=== PATIENT | male | born 1960 ===

== ENCOUNTER 2018-11-19 10:18 | Outpatient (REF) | payer MEDICAID, SELFPAY ==
[2018-11-19 22:32] LABS: Anion Gap 7.2 mmol/L (3-11); BUN 19 mg/dL (7-18); CO2 30.8 mmol/L (21.0-32.0); CREATININE 1.09 mg/dL (0.70-1.30); Calcium 9.4 mg/dL (8.5-10.1); Chloride 105 mmol/L (98-107); Glucose 134 mg/dL (70-100); Magnesium 1.8 mg/dL (1.8-2.4); Potassium 4.3 mmol/L (3.5-5.1); Sodium 143 mmol/L (136-145); TSH (W/Ref FT4) 1.11 uIU/mL (0.358-3.74)
[2018-11-21 05:53] LABS: Vitamin D 25 Total 16.7 ng/ml (30-100)
== END 2018-11-19 10:38 ==
LOC: NCHCN 10:18
PROVIDERS: PCP Family Medicine; Visit Provider Family Medicine
DX: I25.10 Atherosclerotic heart disease of native coronary artery without angina pectoris (principal); M72.0 Palmar fascial fibromatosis [Dupuytren]; I10 Essential (primary) hypertension; E66.3 Overweight; M79.10 Myalgia, unspecified site
CPT/HCPCS: 80048; 82306; 83036; 83735; 84443

== ENCOUNTER 2019-02-18 11:22 | Outpatient (REF) | payer MEDICAID, SELFPAY ==
[2019-02-18 21:05] LABS: Anion Gap 8.9 mmol/L (3-11); BUN 19 mg/dL (7-18); CO2 30.1 mmol/L (21.0-32.0); CREATININE 0.88 mg/dL (0.70-1.30); Calcium 9.1 mg/dL (8.5-10.1); Chloride 105 mmol/L (98-107); Glucose 71 mg/dL (70-100); Potassium 4.6 mmol/L (3.5-5.1); Sodium 144 mmol/L (136-145)
[2019-02-20 06:09] LABS: Vitamin D 25 Total 28.5 ng/ml (30-100)
== END 2019-02-18 11:42 ==
LOC: NCHCN 11:22
PROVIDERS: PCP Family Medicine; Visit Provider Family Medicine
DX: E55.9 Vitamin D deficiency, unspecified (principal); I10 Essential (primary) hypertension
CPT/HCPCS: 80048; 82306

== ENCOUNTER 2021-02-17 15:51 | Outpatient (REF) | payer MEDICAID, SELFPAY ==
[2021-02-17 13:10] LABS: Anion Gap 8.4 mmol/L (3-11); BUN 16 mg/dL (7-18); CO2 27.6 mmol/L (21.0-32.0); CREATININE 0.8 mg/dL (0.70-1.30); Calcium 9.4 mg/dL (8.5-10.1); Chloride 105 mmol/L (98-107); Glucose 119 mg/dL (74-106); Potassium 4.4 mmol/L (3.5-5.1); Sodium 141 mmol/L (136-145)
== END 2021-02-17 15:52 | disposition home or self-care (01) ==
LOC: NCHCN 15:51
PROVIDERS: PCP Family Medicine; Visit Provider Nurse Practitioner Family
DX: I10 Essential (primary) hypertension (principal)
CPT/HCPCS: 80048

== ENCOUNTER 2021-03-03 15:26 | Outpatient (REF) | payer MEDICAID, SELFPAY ==
[2021-03-03 19:23] LABS: Anion Gap 6.7 mmol/L (3-11); BUN 24 mg/dL (7-18); CO2 28.3 mmol/L (21.0-32.0); CREATININE 1.1 mg/dL (0.70-1.30); Chloride 106 mmol/L (98-107); Glucose 134 mg/dL (74-106); Potassium 4.2 mmol/L (3.5-5.1); Sodium 141 mmol/L (136-145)
== END 2021-03-03 15:27 | disposition home or self-care (01) ==
LOC: NCHCN 15:26
PROVIDERS: Nurse Practitioner Family; PCP Family Medicine; Visit Provider Family Medicine
DX: I10 Essential (primary) hypertension (principal)
CPT/HCPCS: 80048

== ENCOUNTER 2021-06-21 15:22 | Outpatient (REF) | payer MEDICAID, SELFPAY ==
[2021-06-21 20:57] LABS: ALT 39 U/L (16-63); AST 32 U/L (15-37); Albumin 4.2 g/dL (3.4-5.0); Alkaline Phosphatase 75 U/L (46-116); Anion Gap 9.2 mmol/L (3-11); BUN 30 mg/dL (7-18); Bilirubin, Total 0.5 mg/dL (0.2-1.0); CO2 29.8 mmol/L (21.0-32.0); CREATININE 1.3 mg/dL (0.70-1.30); Calcium 9.1 mg/dL (8.5-10.1); Calculated LDL 73 mg/dL (<100); Chloride 103 mmol/L (98-107); Cholesterol 146 mg/dL (<200); Estimated GFR 55.94 (mL/min/1.73m2); Glucose 104 mg/dL (74-106); HDL Cholesterol 44 mg/dL (40-60); Magnesium 2.2 mg/dL (1.8-2.4); Potassium 4.4 mmol/L (3.5-5.1); Sodium 142 mmol/L (136-145); Total Protein 7.9 g/dL (6.4-8.2); Triglyceride 146 mg/dL (<150)
== END 2021-06-21 15:23 | disposition home or self-care (01) ==
LOC: NCHCN 15:22
PROVIDERS: PCP Family Medicine; Visit Provider Nurse Practitioner Family
DX: R73.03 Prediabetes (principal); I10 Essential (primary) hypertension; M79.18 Myalgia, other site
CPT/HCPCS: 80053; 80061; 83036; 83735

== ENCOUNTER 2022-05-22 15:48 | Outpatient (REF) | payer MEDICAID, SELFPAY ==
[2022-05-22 23:34] LABS: PSA, Screening 1.7 ng/mL (<=4.5)
== END 2022-05-22 15:49 | disposition home or self-care (01) ==
LOC: NCHCN 15:48
PROVIDERS: PCP Family Medicine; Visit Provider Family Medicine
DX: Z12.5 Encounter for screening for malignant neoplasm of prostate (principal)
CPT/HCPCS: 84153

== ENCOUNTER 2023-01-23 16:40 | Outpatient (REF) | payer MEDICAID, SELFPAY ==
[2023-01-23 17:19] LABS: ALT 45 U/L (16-63); AST 27 U/L (15-37); Albumin 4.1 g/dL (3.4-5.0); Alkaline Phosphatase 71 U/L (46-116); Anion Gap 8.3 mmol/L (3-11); BUN 22 mg/dL (7-18); Bilirubin, Total 0.5 mg/dL (0.2-1.0); CO2 28.7 mmol/L (21.0-32.0); CREATININE 1.1 mg/dL (0.70-1.30); Calcium 9.2 mg/dL (8.5-10.1); Calculated LDL 91 mg/dL (<100); Chloride 103 mmol/L (98-107); Cholesterol 154 mg/dL (<200); Estimated GFR 74.96 (mL/min/1.73m2); Glucose 125 mg/dL (74-106); HDL Cholesterol 49 mg/dL (40-60); Potassium 4.2 mmol/L (3.5-5.1); Sodium 140 mmol/L (136-145); Total Protein 8.1 g/dL (6.4-8.2); Triglyceride 71 mg/dL (<150)
[2023-01-23 17:44] LABS: Vitamin D 25 Total 15.8 ng/mL (30-100)
== END 2023-01-23 16:41 | disposition home or self-care (01) ==
LOC: NCHCN 16:40
PROVIDERS: PCP Family Medicine; Visit Provider Family Medicine
DX: R73.03 Prediabetes (principal); I10 Essential (primary) hypertension; E55.9 Vitamin D deficiency, unspecified; I25.10 Atherosclerotic heart disease of native coronary artery without angina pectoris
CPT/HCPCS: 80053; 80061; 82306; 83036

== ENCOUNTER 2024-01-23 12:40 | Outpatient (REF) | payer MEDICARE, MEDICAID, SELFPAY ==
[2024-01-23 15:14] LABS: ALT 40 U/L (16-63); AST 26 U/L (15-37); Albumin 3.8 g/dL (3.4-5.0); Alkaline Phosphatase 68 U/L (46-116); Anion Gap 4.7 mmol/L (3-11); BUN 18 mg/dL (7-18); Bilirubin, Total 0.6 mg/dL (0.2-1.0); CO2 30.3 mmol/L (21.0-32.0); Calculated LDL 42 mg/dL (<100); Chloride 107 mmol/L (98-107); Cholesterol 105 mg/dL (<200); Estimated GFR 83.52 (mL/min/1.73m2); Glucose 128 mg/dL (74-106); HDL Cholesterol 55 mg/dL (40-60); Potassium 4.8 mmol/L (3.5-5.1); Sodium 142 mmol/L (136-145); Total Protein 7.4 g/dL (6.4-8.2); Triglyceride 41 mg/dL (<150)
[2024-01-23 15:16] LABS: Hemoglobin A1C 5.9 % (<5.7)
[2024-01-23 15:21] LABS: Vitamin D 25 Total 19.3 ng/mL (30-100)
== END 2024-01-23 12:41 | disposition home or self-care (01) ==
LOC: NCHCN 12:40
PROVIDERS: PCP Family Medicine; Referring Provider Family Medicine; Visit Provider Family Medicine
DX: R73.03 Prediabetes (principal); E78.00 Pure hypercholesterolemia, unspecified; E55.9 Vitamin D deficiency, unspecified
CPT/HCPCS: 80053; 80061; 82306; 83036

== ENCOUNTER 2025-01-22 08:03 | Outpatient (REF) | payer MEDICARE, SELFPAY ==
[2025-01-22 16:14] LABS: ALT 51 U/L (16-63); AST 28 U/L (15-37); Albumin 4.1 g/dL (3.4-5.0); Alkaline Phosphatase 79 U/L (46-116); Anion Gap 8.1 mmol/L (3-11); BUN 18 mg/dL (7-18); Bilirubin, Total 0.7 mg/dL (0.2-1.0); CO2 28.9 mmol/L (21.0-32.0); Calcium 9.3 mg/dL (8.5-10.1); Calculated LDL 46 mg/dL (<100); Chloride 104 mmol/L (98-107); Cholesterol 114 mg/dL (<200); Estimated GFR 83.01 (mL/min/1.73m2); Glucose 127 mg/dL (74-106); HDL Cholesterol 55 mg/dL (>or=40); Potassium 4.4 mmol/L (3.5-5.1); Sodium 141 mmol/L (136-145); Total Protein 7.8 g/dL (6.4-8.2); Triglyceride 68 mg/dL (<150); Vitamin D 25 Total 45 ng/mL (30-100)
== END 2025-01-22 08:04 | disposition home or self-care (01) ==
LOC: NCHCN 08:03
PROVIDERS: PCP Family Medicine; Visit Provider Family Medicine
DX: E78.00 Pure hypercholesterolemia, unspecified (principal); R73.03 Prediabetes; E55.9 Vitamin D deficiency, unspecified
CPT/HCPCS: 80053; 80061; 82306; 83036